=== PATIENT | male | born 2000 | race Caucasian/White ===

== ENCOUNTER 2021-09-23 20:54 | Emergency (ER) | payer OTHER ==
[~2021-09-23] VITALS: Ht 180.3 cm; Wt 74.8 kg
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
[2021-09-23] MEDS ORDERED: KETOROLAC TROMETHAMINE INJ 60 MG/2 ML VIAL IM ONE (22:30)
--- NOTE | 2021-09-23 22:31 | NUR ---
PT TAKEN FOR CT SCAN
[2021-09-23] MEDS ORDERED: KETOROLAC TROMETHAMINE INJ 30 MG/ML VIAL ONE (22:32)
[2021-09-23] MEDS ORDERED: IBUP-1955 PO (23:11)
[2021-09-23] MEDS ORDERED: ONDA4TAB5 PO (23:11)
[2021-09-23 23:42] VITALS: BP 144/79
== END 2021-09-23 23:43 | disposition home or self-care (01) ==
LOC: ER 21:10
DX: S09.90XA Unspecified injury of head, initial encounter (principal); W20.8XXA Other cause of strike by thrown, projected or falling object, initial encounter; Y93.89 Activity, other specified; Y92.89 Other specified places as the place of occurrence of the external cause; Y99.8 Other external cause status
CPT/HCPCS: 70450; 96372; 99284; J1885